=== PATIENT | female | born 1985 | race African-American/Black ===

== ENCOUNTER 2020-05-16 23:27 | Emergency (ER) | payer OTHER, SELFPAY ==
--- NOTE | ~2020-05-16 | CT_ITS ---
EXAMINATION: CT abdomen pelvis w con DATE: 05/17/2020 01:28 INDICATION: Abdominal pain TECHNIQUE: Computed tomography (CT) of the abdomen and pelvis was performed with 100 cc Omnipaque 350 intravenous contrast. Automated exposure control and iterative reconstruction technique were employe d. Exam dose: 1507.92 mGy-cm total exam DLP. COMPARISON: None. FINDINGS: The lung bases are clear of infiltrate or consolidation. No pericardial or pleural effusion . The liver, gallbladder, bile ducts, spleen, pancreas and pancreatic duct as well as adrenal glands ar e unremarkable. No renal mass lesion. No urinary tract calculus or hydroureteronephrosis. Normal caliber of the abdominal aorta. Normal appendix. No bowel obstruction, bowel wall thickening, pneumatosis or intraperitoneal free air . There is a 30 cm cystic mass occupying almost the entire mid to lower abdomen and pelvis, likely of o varian etiology. Consider MRI of the abdomen and pelvis with contrast material for further characteri zation effusion. Probable approximately 11 mm osteosclerotic bone island of left iliac bone. IMPRESSION: 30 cm cystic abdominal and pelvic mass, likely of ovarian origin; consider MRI for furth er evaluation Reviewed, dictated and finalized at [facility] Reviewed, dictated and finalized at [facility] IMPRESSION: 30 cm cystic abdominal and pelvic mass, likely of ovarian origin; consider MRI for further evaluation
[2020-05-16 23:35] VITALS: BP 143/78; PULSE 77; RESP 15; TEMP 37.6; O2SAT 100
--- NOTE | 2020-05-16 23:49 | PC.NURSE ---
Pt. states she is unable to urinate at this time.
[2020-05-17 00:07] LABS: Basophils Percent Auto 0.5 % (0.2-1.2); Eosinophils Absolute Auto 0.2 K/mm3 (0-0.3); Eosinophils Percent Auto 3.4 % (0-4.4); Hematocrit 35.9 % (37.0-47.0); Hemoglobin 11.4 g/dL (12.0-15.0); Immature Granulocyte Absolute 0.01 K/mm3 (0.00-0.031); Immature Granulocyte Percent A 0.2 % (0-0.5); Lymphocytes Percent Auto 52.4 % (18.3-44.2); Mean Corpuscular HGB Conc 31.8 g/dl (32-36); Mean Corpuscular Hemoglobin 24.3 pg (26-34); Mean Corpuscular Volume 76.4 fl (80-100); Monocytes Absolute Auto 0.7 K/mm3 (0.1-0.6); Monocytes Percent Auto 11.8 % (2.6-8.5); Neutrophils Absolute Auto 1.9 K/mm3 (1.3-6.7); Neutrophils Percent Auto 31.7 % (45.5-73.1); Platelet Count Result 303 k/mm3 (150-375); Red Cell Distribution Width 16.3 % (11.5-14.5); White Blood Count 5.9 K/mm3 (4.5-10.0)
[2020-05-17 00:20] LABS: Alanine Aminotransferase 16 U/L (4-35); Alkaline Phosphatase 56 U/L (38-126); Anion Gap 12 mmol/L (8-16); Aspartate Amino Transferase 29 U/L (14-36); Bilirubin,Total 0.4 mg/dL (0.2-1.3); Blood Urea Nitrogen 11 mg/dL (7-17); Calcium 9.4 mg/dL (8.4-10.2); Carbon Dioxide 22 mmol/L (22-30); Chloride 105 mmol/L (98-107); Estimated CRCL calculation 92 ml/min; Estimated Glomerular Filt Rate > 60; Glucose 104 mg/dL (65-105); Lipase 45 U/L (23-300); Potassium 4.1 mmol/L (3.4-5.0); Sodium 139 mmol/L (137-145)
[2020-05-17] MEDS: SODIUM CHLORIDE 0.9% IV 1,000 ML 999 ML IV CONT (00:29)
--- NOTE | 2020-05-17 00:34 | PC.NURSE ---
Pt. states she cannot urinate. pt states she will sign a consent form for ct.
[2020-05-17] MEDS: KETOROLAC 30 MG/ML VIAL (*BKC) IV PUSH (00:37)
--- NOTE | 2020-05-17 00:54 | PC.NURSE ---
Pt. vomiting. pt. refusing zofran. ERP made aware.
[2020-05-17 01:00] VITALS: BP 151/78; PULSE 98; RESP 15; O2SAT 99
[2020-05-17 01:59] LABS: Add Urine Microscopic? YES; Appearance Urine Clear (Clear); Bilirubin Urine Negative (Negative); Blood Urine Negative (Negative); Color Urine Yellow (Yellow); Glucose Urine UA Negative (Negative); Ketones Urine Negative (Negative); Leukocyte Esterase Ur Negative LEU/UL (Negative); Mucus Urine Rare /lpf; Nitrate Urine Negative (Negative); Protein Urine Negative (Negative); RBC Urine 0-2 /hpf (0-2); Specific Grav Ur 1.023 (1.001-1.035); Squamous Epithelial Cell Urine Moderate /hpf (Few); Urobilinogen Urine Negative mg/dL (<2.0); WBC Urine 0-3 /hpf
--- NOTE | 2020-05-17 02:32 | ED.ABDPAIN ---
HPI - Abdominal Pain General Chief Complaint: Abdominal Pain Stated Complaint: abd pain Time Seen by Provider: 05/16/20 23:53 History of Present Illness HPI narrative: Patient a 34-year-old female who presents the emergency department with chief complaint of abdominal pain. The patient reports that she has pain throughout her abdomen reports that is not improved by anything states she has a full-like sensation in her abdomen. Patient states also caused her to have difficulty moving her bowels. The patient reports that she has had no trauma denies fever denies chills.. Related Data Allergies Allergy/AdvReac Type Severity Reaction Status Date / Time No Known Allergies Allergy Verified 05/17/20 00:12 Review of Systems Review of Systems: Narrative: CONSTITUTIONAL: Denies fever, chills, or sweats. EYES: Denies visual changes, redness, or discharge. ENT: Denies rhinorrhea, congestion, sore throat, or otalgia. CARDIOVASCULAR: Denies chest pain, palpitations, or edema. RESPIRATORY: Denies cough or dyspnea. GASTROINTESTINAL: Denies abdominal pain, nausea, vomiting, or diarrhea. GENITOURINARY: Denies dysuria or hematuria. SKIN: Denies rash or itching. MUSCULOSKELETAL: Denies back pain, joint pain, or myalgia. NEUROLOGIC: Denies headache, numbness, or weakness. PSYCHIATRIC: Denies anxiety or depression. A 10 system review of systems was completed on the patient and is negative except for what is stated in the HPI. Nursing and ancillary documentation was reviewed. PMFSH Comments Patient denies significant past medical history Patient denies illicit drug use Exam Narrative: Exam Narrative: GENERAL: Well-appearing, well-nourished, and in no acute distress. HEAD: Normocephalic, atraumatic. EYES: PERRLA and EOMI. ENT: Nares clear, no rhinorrhea or epistaxis. Mucous membranes moist. NECK: Supple. CHEST: Clear to auscultation. No respiratory distress. HEART: Regular rate and rhythm. No murmur heard. Normal peripheral pulses. ABDOMEN: Soft, diffusely tender, nondistended, normal active bowel sounds. EXTREMITIES: Normal range of motion. No edema. SKIN: Warm, dry, no rash. NEURO: No focal deficits. Alert and oriented x3. PSYCH: Normal mood and affect. Course Course Emergency Course: CT scan showed evidence of a large 30 cm cystic mass most likely related to ovary. Patient's pain is improved significantly case was discussed with the on-call bottle washer who recommended follow-up as an outpatient. Patient was offered local follow-up but the patient is from [place]. The patient would prefer to follow-up with a INSURANCE AGENT that is local to her the patient was recommended to contact local systems in [place] for outpatient follow-up Vital Signs Vital signs: Vital Signs Temperature 37.6 C 05/16/20 23:35 Pulse Rate 77 05/16/20 23:35 Respiratory Rate 15 05/16/20 23:35 Blood Pressure 143/78 H 05/16/20 23:35 Pulse Oximetry 100 05/16/20 23:35 Temperature 37.6 C 05/16/20 23:35 Pulse Rate 89 05/17/20 03:07 Respiratory Rate 17 05/17/20 03:07 Blood Pressure 149/85 H 05/17/20 03:07 Pulse Oximetry 96 05/17/20 03:07 MDM - Abdominal Pain Lab Data Result diagrams: 05/16/20 23:55 05/16/20 23:55 Labs: Lab Results 05/16/20 05/16/20 05/17/20 Range/Units 23:55 23:55 01:02 WBC 5.9 (4.5-10.0) K/mm3 RBC 4.70 (4.2-5.4) M/mm3 Hgb 11.4 L (12.0-15.0) g/dL Hct 35.9 L (37.0-47.0) % MCV 76.4 L (80-100) fl MCH 24.3 L (26-34) pg MCHC 31.8 L (32-36) g/dl RDW 16.3 H (11.5-14.5) % Plt Count 303 (150-375) k/mm3 MPV 10.0 (7.4-10.4) fl Immature Gran % (Auto) 0.2 (0-0.5) % Neut % (Auto) 31.7 L (45.5-73.1) % Lymph % (Auto) 52.4 H (18.3-44.2) % Wright % (Auto) 11.8 H (2.6-8.5) % Eos % (Auto) 3.4 (0-4.4) % Baso % (Auto) 0.5 (0.2-1.2) % Lymph # (Auto) 3.10 (0.9-3.2) K/mm3 Wright # (Auto) 0.7 H (0.1-0.6) K/mm
[2020-05-17 03:07] VITALS: BP 149/85; PULSE 89; RESP 17; O2SAT 96
[2020-05-17 03:55] VITALS: BP 138/88; PULSE 78; RESP 19; O2SAT 99
== END 2020-05-17 03:55 | disposition home or self-care (01) ==
PROVIDERS: Emergency Medicine; Emergency Provider Emergency Medicine
DX: N83.209 Unspecified ovarian cyst, unspecified side (principal); R10.84 Generalized abdominal pain
CPT/HCPCS: 36415; 74177; 80053; 81001; 81025; 83690; 85025; 96361; 96374; 96375; 99284; J0131; J1885; J7030; Q9967